=== PATIENT | female | born 1975 | race Caucasian/White ===

== ENCOUNTER 2024-08-30 10:12 | Outpatient (AMB) | payer OTHER, SELFPAY ==
[2024-08-30 10:15] VITALS: BP 124/72; PULSE 96; O2SAT 98; BMI 55.6
--- NOTE | 2024-08-30 10:15 | MHC.OFFVIS ---
Vital Signs 08/30/24 10:15 Height 5 ft 1.5 in Weight 299 lb 2 oz BMI 55.6 BP 124/72 Blood Pressure Location Lt brachial Position Sitting Pulse 96 Pulse Source Pulse Oximeter Pulse Oximetry (%) 98 Oxygen Delivery Method Room Air Intake Visit Reasons: PSA Intake Note: Patient presents today for PSA. She last saw Dr. Fishman at the the [facility] on 03/03/2024. Allergies acetaminophen [From Vicodin] Adverse Reaction (Unknown, Unverified 08/26/24 15:52) Unknown hydrocodone [From Vicodin] Adverse Reaction (Unknown, Unverified 08/26/24 15:52) Unknown morphine Adverse Reaction (Unknown, Unverified 08/26/24 15:52) Unknown HPI HPI PSA: Details: When she was on Talz she had dysphagia to saliva. She also developed COVID-19 after 4 doses on Taltz. Prednisone course improve joint pain and swelling but it caused hypertension. On Otezla perscribed by Cloth Reeler. Recently started a month and a half ago. 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 She has not had hysterectomy. She has not established with another server service assistant. She requires assistance from her 2 adult children to get dressed and to assist with ADLs. She has having pain in knees. R Knee is locking for the last month. She has sharp pains in feet radiating up. She went ER [facility] and had ultrasound to rule out DVT. [facility]LY [facility], [facility] Medical History (Updated 08/30/24 @ 22:49 by Sarath Fishman MD) Endometriosis determined by laparoscopy delivery delivered Family History (Updated 08/30/24 @ 10:24 by Kim Collazo CMA) Mother Heart attack Drug-induced lupus erythematosus Sister Rheumatoid arthritis Father Heart disease Gout COPD (chronic obstructive pulmonary disease) Social History (Updated 08/30/24 @ 10:24 by Kim Collazo CMA) Household Members: Family Alcohol intake: never e-Cigarette/Vaping Use: Currently Using Review of Systems Const All systems reviewed & are unremarkable except as noted in HPI and below Physical Exam Vital Signs: Last Vital Signs Pulse 96 08/30/24 10:15 BP 124/72 08/30/24 10:15 Pulse Ox 98 08/30/24 10:15 Oxygen Delivery Method Room Air 08/30/24 10:15 BMI result Body Mass Index 55.6 Const Other: General: Comfortable CVS: RRR Respiratory: clear to auscultation bilaterally. Good respiratory effort Skin: No lesions seen MSK: Tender PIP and left wrist. Bilateral shoulder tenderness on palpation. She has preserved range of motion of left shoulder but with pain. Tender right knee with mild synovitis. No popliteal cyst palpated. Right knee flexion 90 degrees. Bilateral MTP tenderness. Results Reviewed Results Reviewed: Right knee x-ray 07/2024 reviewed. Normal. X-ray was not performed standing. Right knee ultrasound 07/2024 reviewed. Trace edema noted popliteal fossa. No DVT. Assessment & Plan Assessment & Plan (1) Psoriatic arthritis: Comment: She has mild synovitis right knee, polyarthralgias and stiffness limiting function/ADLs. She recently started Otezla prescribed by Dermatology. She did not start methotrexate due to fear of side effects, especially when she experienced dysphagia on Taltz and contracted COVID-19 after 4 doses on Taltz. We discussed that immunosuppressive therapy varies by their immune target and if she experienced a side effect with 1 drug it does not mean that she will have a side effects similar with other agents with alternative immune targets (reduce risk of cross reactivity). We discussed risks and benefits of methotrexate. I will allow more time for Otezla for full effectiveness and reassess next visit if there is a need to add on methotrexate. Patient agrees with plan Code(s): L40.50 - Arthropathic psoriasis, unspecified Category: Medical Plan: Continue Otezla 30 mg twice a day prescribed by Dermatology Avoid prednisone due to side effect Start meloxicam 15 mg daily X-ray left shoulder and right knee ordered standing Return to clinic in 2 months Orders: Orders XR shoulder LT min 2V Today M25.512 - Pain in left shoulder Alanine Aminotransferase Today Z79.60 - termite control technician (current) use of unspecified immunomodulators and immunosuppressants Aspartate Amino Transferase Today Z79.60 - termite control technician (current) use of unspecified immunomodulators and immunosuppressants Complete Blood Count Auto Diff Today Z79.60 - termite control technician (current) use of unspecified immunomodulators and immunosuppressants C Reactive Protein Today L40.50 - Arthropathic psoriasis, unspecified XR knee RT 2V Today M17.0 - Bilateral primary osteoarthritis of knee Creatinine Today Z79.60 - group home (current) use of unspecified immunomodulators and immunosuppressants Erythrocyte Sedimentation Rate Today L40.50 - Arthropathic psoriasis, unspecified Medications: New meloxicam 15 mg PO DAILY 30 tabs 2RF Coding Level of Care Code Est Pt Level 4 (98897) Complex EM visit Add On G2211 Diagnoses Psoriatic arthritis L40.50
--- OUTSIDE RECORDS SUMMARY | 2024-08-30 11:26 | XMS_ITS | Referral Summary ---
Author Organization [facility] Address [address] [place] [address] Care Team Providers Care Promotions Specialist Name Role Phone Ruby Miguel Primary Care Provider [phone] Allergies Active Allergy Reactions Criticality Noted Date Comments Lactose Nausea 03/09/2023 Morphine Malaise 06/12/2021 Oxycodone-Acetaminophen Other (see comments) Sensitivity Medications Ventolin HFA 90 mcg/actuation inhaler Inhale 2 puffs by mouth every 4 hours as needed for wheezing or shortness of breath. Active alclometasone (ACLOVATE) 0.05 % ointment Apply 1 application. topically to the affected area as needed. 3 Active betamethasone, augmented, (DIPROLENE) 0.05 % lotion Apply 1 application. topically to the affected area as needed. 3 Active calcipotriene (DOVONOX) 0.005 % ointment Apply 1 application. topically to the affected area 2 times a day as needed for irritation or rash. 3 Active Vitamin D3 25 mcg (1,000 unit) capsule Take 1,000 Units by mouth 2 (two) times a day. 3 Active fluocinonide (LIDEX) 0.05% cream Apply 1 application. topically to the affected area 2 times a day as needed for irritation or rash. 3 Active metoprolol succinate XL (TOPROL XL) 50 mg tablet Take 50 mg by mouth once a day. Active omeprazole (PriLOSEC) 20 mg capsule Take 20 mg by mouth once a day. 3 Active predniSONE (DELTASONE) 5 mg tablet Take 5 mg by mouth daily as needed (for flares). Active Social History Tobacco Use Types Packs/Day Years Used Date Smoking Tobacco: Former Cigarettes Q uit: 03/2022 Passive Smoke Exposure: Past Smokeless Tobacco: Never Alcohol Use Standard Drinks/Week Comments Not Currently 0 (1 standard drink = 0.6 oz pur e alcohol) Comments Unknown Sex and Gender Information Value Date Recorded Sex Assigned at Female 03/08/2023 12:38 PM EDT Legal Sex Female 2:09 PM EST Gender Identity Female 03/08/2023 12:38 PM EDT Sexual Orientation Straight 03/08/2023 12 :38 PM EDT Last Filed Vital Signs Vital Sign Reading Time Taken Comments Blood Pressure 135/81 03/09/2023 10:31 AM EDT Pulse 86 03/09/2023 10:31 AM EDT Temperature 36.7 ??C (98 ??F) 03/09/2023 10: 31 AM EDT Respiratory Rate - - Oxygen Saturation - - Inhaled Oxygen Concentration - - Weight 126.5 kg (278 lb 12.8 oz) 2022 10:31 AM EDT Height 157.5 cm (5' 2 ) 03/09/2023 10:3 1 AM EDT Body Mass Index 50.99 03/09/2023 10:31 AM EDT Plan of Treatment Not on file Procedures * Due to [place] Ifby[employer] law, this organization might not be sharing negative HIV tests. Procedure Name Priority Date/Time Associated Diagnosis Comments HEPATITIS C ANTIBODY W/REFLEX TO HCV RNA, QUANTITATIVE PCR Routine 03/09/2023 12:01 PM EDT Polyarthralgia Psoriasis from Last 3 Months or Most Recently Relevant to Health Maintenance Results * Due to [place] Ifbyphone law, this organization might not be sharing negative HIV tests. * Hepatitis C Antibody w/Reflex to HCV RNA, Quantitative PCR (03/09/2023 12:01 PM EDT) Hepatitis C Antibody NON-REACT MINOR NON-REACT MINOR 03/10/2023 12:01 AM EDT [employer] Comment: HCV antibody was non-reactive. There is no laboratory evidence of HCV infection. In most cases, no further action is required. However, if recent HCV exposure is suspected, a test for HCV RNA (test code 82212) is suggested. For additional information please refer to http://education.Tins.ly.myPizza.com/faq/BFV80u0 (This link is being provided for informational/ educational purposes only.) Blood Structure of peripheral vein / Unknown Venipuncture / Unknown 03/09/2023 12:01 PM EDT 03/09/2023 12:58 PM EDT Narrative [facility] - 03/10/2023 12:01 AM EDT [facility] Received Date:[id number] Gerri Souza MD LAB BLOOD ORDERABLES Final Res ult [facility] [address], [place] [address], [employer] [facility] [address] [facility] [address], [place] [address], from Last 3 Months or Most Recently Relevant to Health Maintenance Insurance [facility] MEDICAID Care Teams Promotions Specialist Relationship Specialty Start Date End Date Ruby Miguel PCP - General Family Medicine 08/26/22
--- OUTSIDE RECORDS SUMMARY | 2024-08-30 11:26 | XMS_ITS | Clinical Summary ---
Author Organization [facility] Address [address] [place] [address] Care Team Providers Care Solar Manufacturer'S Representative Name Role Phone Ruby Miguel Primary Care Provider [phone] Allergies Active Allergy Reactions Criticality Noted Date [...] 03/09/2023 10:31 AM EDT Plan of Treatment Health Maintenance Due Date Last Done Comments Cervical Cancer Screening 1974 Cologuard 1974 Colon Cancer Screening 1974 Colonoscopy 1974 FOBT / Fit Test 1974 HIV Screening 1974 HPV and Pap Smear 1974 Pap Smear 1974 Sigmoidoscopy 1974 Hepatitis B Vaccines (1 of 3 - 19+ 3-dose series) 1993 Mammogram 2014 COVID-19 Vaccine ( season) 2024 12/13/2020, 11/22/2020 Influenza Vaccine (#1) 2024 2, 08/11/2021, 08/11/2021, Additional history exists CT Lung Cancer Screening (Baseline) 2024 Zoster Vaccines (1 of 2) 2024 Alcohol/Substance Use Screening 08/10/2024 Depression Screening and Follow-Up 08/10/2024 Social Drivers of Health Annual Screening 08/10/2024 DTaP,Tdap,and Td Vaccines (2 - Td or Tdap) 01/28/2027 01/28/2017 RSV Vaccine (60+ years old and patients) (1 - 1-dose 75+ series) 2049 Hepatitis C Screening Completed 03/09/2023 Pneumococcal Vaccine: Pediatric (0-5 Years) and At-Risk Patients (6-64 Years) Aged Out No longer eligible based on patient's age to complete this topic Procedures * Due to [place] Aves[employer] law, this organization might not be sharing negative HIV tests. Procedure Name Priority Date/Time Associated Diagnosis Comments HEPATITIS C ANTIBODY W/REFLEX TO HCV RNA, QUANTITATIVE PCR Routine 03/09/2023 12:01 PM EDT Polyarthralgia Psoriasis from Last 3 Months or Most Recently Relevant to Health Maintenance Results * Due to [place] A[employer] law, this organization might not be sharing negative HIV tests. * Hepatitis C Antibody w/Reflex to HCV RNA, Quantitative PCR (03/09/2023 12:01 PM EDT) Hepatitis C Antibody NON-REACT MINOR NON-REACT MINOR 03/10/2023 12:01 AM EDT [facility] Comment: HCV antibody was non-reactive. There is no laboratory evidence of HCV infection. In most cases, no further action is required. However, if recent HCV exposure is suspected, a test for HCV RNA (test code 50277) is suggested. For additional information please refer to http://education.[employer]faq/XIY56l6 (This link is being provided for informational/ educational purposes only.) Blood Structure of peripheral vein / Unknown Venipuncture / Unknown 03/09/2023 12:01 PM EDT 03/09/2023 12:58 PM EDT Narrative [facility] - 03/10/2023 12:01 AM EDT [facility] Received Date:[id number] us Gerri Souza MD LAB BLOOD ORDERABLES Final Res ult [facility] [address] [place] [address] Floor, [place] [address], [place] [phone] [facility] [address] [facility] [address] [address], [place] [address], [place] [phone] from Last 3 Months or Most Recently Relevant to Health Maintenance Insurance [facility] MEDICAID Care Teams Solar Manufacturer'S Representative Relationship Specialty Start Date End Date Ruby Miguel PCP - General Family Medicine 08/26/22
== END 2024-08-30 11:20 | disposition home or self-care (01) ==
PROVIDERS: Visit Provider Internal Medicine Rheumatology
DX: L40.50 Arthropathic psoriasis, unspecified (principal)
CPT/HCPCS: 99214; G2211